=== PATIENT | male | born 1955 | race Caucasian/White ===

== ENCOUNTER 2018-06-12 10:42 | Inpatient (IN) | payer OTHER ==
[2018-06-11 08:58] LABS: ALANINE AMINOTRANSFERASE 26 U/L (12-78); ALBUMIN 3.9 g/dL (3.4-5.0); ANION GAP 7 mmol/L (5-15); CALCIUM 8.6 mg/dL (8.5-10.1); CHLORIDE 105 mmol/L (98-107)
[2018-06-11 09:00] LABS: ALKALINE PHOSPHATASE 70 U/L (45-117); BILIRUBIN,TOTAL 0.7 mg/dL (0.2-1.0); TOTAL PROTEIN 8.2 g/dL (6.4-8.2)
[~2018-06-12] VITALS: Ht 167.6 cm; Wt 83.1 kg
[~2018-06-12 10:42] MED LIST: ASPI-650 PO; BUPIVACAINE/PF 0.5% ONE; EPINEPHRINE 1 MG/ML, 1ML ONE; LINA1TAB9 PO
[2018-06-12] MEDS ORDERED: MIDAZOLAM 1 MG/ML, 2ML ONE (10:54)
[2018-06-12] MEDS ORDERED: FENTANYL PF 250 MCG/5ML ONE (10:54)
[2018-06-12 11:01] VITALS: BP 136/84
[2018-06-12] MEDS: LACTATED RINGERS 1,000 ML IV SCH ×4 (11:09→21:25)
[2018-06-12] MEDS ORDERED: GABAPENTIN 300 MG CAPSULE ONE (11:35)
[2018-06-12] MEDS ORDERED: SCOPOLAMINE PATCH, 1.5MG PATCH.TD72 TD ONE (11:35)
[2018-06-12] MEDS ORDERED: ACETAMINOPHEN 500 MG TABLET ONE (11:36)
[2018-06-12] MEDS ORDERED: PHENYLEPHRINE 10 MG/ML ONE (11:49)
[2018-06-12] MEDS ORDERED: DEXAMETHASONE 4 MG/ML, 1ML ONE (11:49)
[2018-06-12] MEDS ORDERED: ONDANSETRON 2MG/ML, 2ML ONE (11:49)
[2018-06-12] MEDS ORDERED: hydrALAzine 20 MG/ML, 1ML IV PRN ×2 (12:30→13:30)
[2018-06-12] MEDS ORDERED: HALOPERIDOL 5 MG/ML IV PRN (12:30)
[2018-06-12] MEDS ORDERED: LABETALOL 5MG/ML, 20ML IV PRN (12:30)
[2018-06-12] MEDS ORDERED: MEPERIDINE/PF 25MG/0.5ML IVPush PRN (12:30)
[2018-06-12] MEDS ORDERED: PROMETHAZINE 25 MG/ML, 1ML IV PRN (12:30)
[2018-06-12] MEDS ORDERED: ROCURONIUM 10MG/ML,5ML ONE ×2 (12:51→12:57)
[2018-06-12] MEDS ORDERED: CEFAZOLIN 1,000 MG ONE (12:51)
[2018-06-12] MEDS ORDERED: PROPOFOL 10 MG/ML, 20ML ONE (12:51)
[2018-06-12] MEDS ORDERED: FENTANYL PF 100 MCG/2ML ONE ×2 (12:57→13:39)
[2018-06-12] MEDS ORDERED: OXYcodone 5 MG/5 ML ORAL.SOL UDC PO PRN (13:30)
[2018-06-12] MEDS ORDERED: ENALAPRILAT 1.25 MG/ML, 2ML IV PRN ×2 (13:30→20:30)
[2018-06-12] MEDS ORDERED: FAMOTIDINE 20 MG TABLET PO SCH (13:30)
[2018-06-12] MEDS ORDERED: ONDANSETRON 2MG/ML, 2ML IVPush PRN ×2 (13:30→20:30)
[2018-06-12] MEDS ORDERED: morphine SULFATE 10 MG/ML, 1ML IV PRN (13:30)
[2018-06-12] MEDS ORDERED: PROMETHAZINE 12.5 MG SUPP PR PRN (13:30)
[2018-06-12] MEDS ORDERED: DIPHENHYDRAMINE 50 MG/ML, 1ML IV PRN (13:30)
[2018-06-12] MEDS ORDERED: ACETAMINOPHEN 650 MG/20.3 ML UDC PO PRN (13:30)
[2018-06-12] MEDS ORDERED: LORazepam 2 MG/ML, 1ML IV PRN (13:30)
[2018-06-12] MEDS ORDERED: OXYcodone 5 MG/5 ML ORAL.SOL UDC ONE (13:39)
[2018-06-12] MEDS: FENTANYL PF 100 MCG/2ML IV PRN ×3 (13:40→14:00)
[2018-06-12] MEDS: OXYcodone 5 MG/5 ML ORAL.SOL UDC PO PRN ×3 (13:45→22:49)
[2018-06-12] MEDS ORDERED: HYDROmorphone 2 MG/ML, 1ML ONE (14:05)
[2018-06-12] MEDS: HYDROmorphone 1 MG/ML, 1ML IV PRN ×2 (14:10→14:30)
[2018-06-12] MEDS: INSULIN REGULAR 100 UNITS/ML, 3ML VIAL SQ-INSULIN SCH ×2 (16:00→21:00)
[2018-06-12] MEDS: FAMOTIDINE 20 MG/2 ML IV SCH (16:17)
[2018-06-12 20:11] VITALS: BP 118/75
[2018-06-12] MEDS: CEFAZOLIN 2,000 MG in SODIUM CHLORIDE 0.9% 50 ML IVPB SCH (20:17)
[2018-06-12] MEDS: morphine SULFATE 10 MG/ML, 1ML IV PRN ×2 (20:19→20:38)
[2018-06-12 23:48] VITALS: BP 114/77
[2018-06-13] MEDS: morphine SULFATE 10 MG/ML, 1ML IV PRN ×2 (02:14→15:05)
[2018-06-13 03:44] VITALS: BP 117/73
[2018-06-13] MEDS: CEFAZOLIN 2,000 MG in SODIUM CHLORIDE 0.9% 50 ML IVPB SCH (04:10)
[2018-06-13] MEDS: OXYcodone 5 MG/5 ML ORAL.SOL UDC PO PRN ×5 (04:10→21:00)
[2018-06-13] MEDS: LACTATED RINGERS 1,000 ML IV SCH ×3 (05:25→21:01)
[2018-06-13] MEDS: FAMOTIDINE 20 MG/2 ML IV SCH ×2 (06:00→17:08)
[2018-06-13] MEDS: INSULIN REGULAR 100 UNITS/ML, 3ML VIAL SQ-INSULIN SCH ×4 (07:00→21:07)
[2018-06-13 07:35] VITALS: BP 101/66
[2018-06-13] MEDS ORDERED: FAMOTIDINE 20 MG TABLET ONE (08:19)
[2018-06-13] MEDS: FAMOTIDINE 20 MG TABLET PO SCH ×2 (08:22→21:00)
[2018-06-13] MEDS: ENOXAPARIN 40 MG/0.4 ML SQ SCH (08:54)
[2018-06-13 13:10] VITALS: BP 120/73
[2018-06-13] MEDS ORDERED: MORPHINE SULFATE 4 MG/ML, 1ML ONE (14:57)
[2018-06-13 19:57] VITALS: BP 125/70
[2018-06-14 00:26] VITALS: BP 132/71
[2018-06-14] MEDS: OXYcodone 5 MG/5 ML ORAL.SOL UDC PO PRN ×2 (02:18→14:00)
[2018-06-14] MEDS: LACTATED RINGERS 1,000 ML IV SCH (05:25)
[2018-06-14 06:53] VITALS: BP 106/63
[2018-06-14] MEDS: INSULIN REGULAR 100 UNITS/ML, 3ML VIAL SQ-INSULIN SCH ×2 (07:00→11:00)
[2018-06-14 07:49] LABS: CREATININE 0.92 mg/dL (0.7-1.3)
[2018-06-14] MEDS: ENOXAPARIN 40 MG/0.4 ML SQ SCH (08:48)
[2018-06-14] MEDS: FAMOTIDINE 20 MG TABLET PO SCH (08:48)
[2018-06-14 14:24] VITALS: BP 137/76
[2018-06-14] MEDS ORDERED: OXYC5TAB3 PO (15:00)
== END 2018-06-14 15:24 | disposition home or self-care (01) | DRG 336 ==
LOC: OUT 10:42 → ORIP 13:25 → 4NOR 15:08 → OBSVTOIN 06-13 18:40 → DCLOUNGE 06-14 14:52
PROVIDERS: ADMIT Thoracic Surgery (Cardiothoracic Vascular Surgery); ATTEND Thoracic Surgery (Cardiothoracic Vascular Surgery)
PROC: 0DNW0ZZ Release Peritoneum, Open Approach (ICD-10-PCS; principal; 2018-06-13)
PROC: 0WUF0JZ Supplement Abdominal Wall with Synthetic Substitute, Open Approach (ICD-10-PCS; 2018-06-13)
PROC: 0YQ60ZZ Repair Left Inguinal Region, Open Approach (ICD-10-PCS; 2018-06-13)
DX: K40.90 Unilateral inguinal hernia, without obstruction or gangrene, not specified as recurrent (principal); K43.0 Incisional hernia with obstruction, without gangrene; E11.9 Type 2 diabetes mellitus without complications; K66.0 Peritoneal adhesions (postprocedural) (postinfection); Z79.82 Long term (current) use of aspirin; Z83.3 Family history of diabetes mellitus; Z79.4 Long term (current) use of insulin
CPT/HCPCS: 36415; S0028; 80053; 82565; 82962; 93005; C1729; G0378; J0171; J0690; J1100; J1170; J1650; J2250; J2405; J2704; J3010; J3490; C1727; C1781; J2270; J2370; J7120

== ENCOUNTER → 2018-10-25 | Outpatient (CLI) | payer MEDICARE ==
[~2018-10-25] MED LIST changes: -BUPIVACAINE/PF 0.5% ONE; -EPINEPHRINE 1 MG/ML, 1ML ONE; +OMNIPAQUE 350 MG/ML, 75ML BOTTLE ONE; +OXYC5TAB3 PO
== END | disposition home or self-care (01) ==
LOC: CFH 08:12
PROVIDERS: ATTEND Family Medicine
DX: D38.1 Neoplasm of uncertain behavior of trachea, bronchus and lung (principal); J98.11 Atelectasis
CPT/HCPCS: 71260; 82565; Q9967

== ENCOUNTER → 2018-11-06 | Outpatient (CLI) | payer MEDICARE ==
[~2018-11-06] MED LIST changes: +ALPH1COM PO; +ALPH200C PO; +OMEG-14 PO; -OMNIPAQUE 350 MG/ML, 75ML BOTTLE ONE; +OXYC1TAB7 PO; +ROSU20TA PO; +SITA1TBM4 PO; +TURM1POW PO; +[UNRECOGNIZED DRUG - OTHER] PO
[2018-11-06 15:06] LABS: ALANINE AMINOTRANSFERASE 22 U/L (12-78); ALBUMIN 4.4 g/dL (3.4-5.0); ANION GAP 4 mmol/L (5-15); CALCIUM 9.6 mg/dL (8.5-10.1); CHLORIDE 105 mmol/L (98-107)
[2018-11-06 15:09] LABS: ALKALINE PHOSPHATASE 72 U/L (45-117); BILIRUBIN,TOTAL 0.5 mg/dL (0.2-1.0); CREATININE 0.88 mg/dL (0.7-1.3); TOTAL PROTEIN 8.8 g/dL (6.4-8.2)
== END | disposition home or self-care (01) ==
LOC: STAR 13:30 → MERGE 14:00
PROVIDERS: ATTEND Urology
DX: Z01.818 Encounter for other preprocedural examination (principal); N20.0 Calculus of kidney
CPT/HCPCS: 36415; 80053; 93005

== ENCOUNTER 2018-11-21 09:25 | Day surgery (SDC) | payer MEDICARE ==
[~2018-11-21] VITALS: Ht 167.6 cm; Wt 75.0 kg
[2018-11-21] MEDS ORDERED: LACTATED RINGERS 1,000 ML IV SCH (09:50)
[2018-11-21] MEDS ORDERED: FENTANYL PF 250 MCG/5ML ONE (12:09)
[2018-11-21] MEDS ORDERED: MIDAZOLAM 1 MG/ML, 2ML ONE (12:09)
[2018-11-21] MEDS ORDERED: CEFAZOLIN 1,000 MG ONE (12:47)
[2018-11-21] MEDS ORDERED: DEXAMETHASONE 4 MG/ML, 1ML ONE (12:47)
[2018-11-21] MEDS ORDERED: ROCURONIUM 10 MG/ML,10ML ONE (12:47)
[2018-11-21] MEDS ORDERED: ONDANSETRON 2MG/ML, 2ML ONE (12:47)
[2018-11-21] MEDS ORDERED: PROPOFOL 10 MG/ML, 20ML ONE (12:47)
[2018-11-21] MEDS ORDERED: KETOROLAC 30 MG/1 ML ONE (12:47)
[2018-11-21] MEDS ORDERED: SUCCINYLCHOLINE 20 MG/ML, 10ML ONE (12:47)
[2018-11-21] MEDS ORDERED: PROMETHAZINE 25 MG/ML, 1ML IV PRN (14:00)
[2018-11-21] MEDS ORDERED: MORPHINE SULFATE 4 MG/ML, 1ML IVPush PRN (14:00)
[2018-11-21] MEDS ORDERED: MEPERIDINE/PF 25MG/0.5ML IVPush PRN (14:00)
[2018-11-21] MEDS ORDERED: ONDANSETRON 2MG/ML, 2ML IV PRN (14:00)
[2018-11-21] MEDS ORDERED: DIPHENHYDRAMINE 50 MG/ML, 1ML IVPush PRN (14:00)
[2018-11-21] MEDS ORDERED: PROMETHAZINE 12.5 MG SUPP PR PRN (14:00)
[2018-11-21] MEDS ORDERED: ONDANSETRON ODT 8 MG PO PRN (14:00)
[2018-11-21] MEDS ORDERED: PROMETHAZINE 25 MG SUPP PR PRN (14:00)
[2018-11-21] MEDS ORDERED: EPHEDRINE 50 MG/ML, 1ML IM PRN (14:00)
[2018-11-21] MEDS ORDERED: OXYcodone 5 MG/5 ML ORAL.SOL UDC PO PRN (14:00)
[2018-11-21] MEDS ORDERED: MIDAZOLAM 1 MG/ML, 2ML IV PRN (14:00)
[2018-11-21] MEDS ORDERED: OXYcodone 5 MG/5 ML ORAL.SOL UDC ONE (14:21)
[2018-11-21] MEDS ORDERED: FENTANYL PF 100 MCG/2ML ONE (14:21)
[2018-11-21] MEDS: FENTANYL PF 100 MCG/2ML IV PRN ×2 (14:25→14:50)
== END 2018-11-21 16:40 | disposition home or self-care (01) ==
LOC: OUT 09:25
PROVIDERS: ATTEND Urology
DX: N20.0 Calculus of kidney (principal); E11.9 Type 2 diabetes mellitus without complications; Z72.89 Other problems related to lifestyle; Z79.84 Long term (current) use of oral hypoglycemic drugs
CPT/HCPCS: 52356; 74018; 76000; 82360; 82962; 88300; C1726; C1769; C2617; J0330; J0690; J1100; J1885; J2250; J2405; J2704; J3010; J7120